=== PATIENT | male | born 1995 | race Caucasian/White ===

== ENCOUNTER 2020-04-01 13:41 | Emergency (ER) | payer OTHER ==
[~2020-04-01] VITALS: Ht 177.8 cm; Wt 61.7 kg
[2020-04-01] MEDS ORDERED: ONDANSETRON HCL/PF 4 MG/2 ML VIAL ONE ×2 (13:59→15:27)
[2020-04-01] MEDS ORDERED: ONDANSETRON HCL/PF 4 MG/2 ML VIAL IVP ONE ×2 (14:00→15:30)
[2020-04-01] MEDS ORDERED: diphenhydrAMINE HCL 50 MG/ML VIAL ONE (14:00)
[2020-04-01] MEDS ORDERED: diphenhydrAMINE HCL 50 MG/ML VIAL IV ONE (14:00)
[2020-04-01] MEDS ORDERED: IV NS 0.9% 1,000 ML BAG IV ONE (14:00)
[2020-04-01] MEDS ORDERED: METOCLOPRAMIDE HCL 10 MG/2 ML VIAL IV ONE (14:00)
[2020-04-01] MEDS ORDERED: METOCLOPRAMIDE HCL 10 MG/2 ML VIAL ONE (14:01)
[2020-04-01 14:15] LABS: BASOPHILS % (AUTO) 0.5 % (0.0-2.0); EOSINOPHILS % (AUTO) 0.4 % (0.0-6.0); HEMATOCRIT 46 % (39-51); HEMOGLOBIN 15.3 g/dL (13.5-17.5); LYMPHOCYTES # (AUTO) 1.3 /CMM (0.8-4.8); LYMPHOCYTES % (AUTO) 13.8 % (20.0-44.0); MEAN CORPUSCULAR HGB CONC 34 g/dl (31.0-36.0); MEAN CORPUSCULAR VOLUME 89 fL (80-96); MONOCYTES # (AUTO) 0.5 /CMM (0.1-1.30); MONOCYTES % (AUTO) 5.5 % (2.0-12.0); NEUTROPHILS # (AUTO) 7.5 /CMM (1.8-8.9); NEUTROPHILS % (AUTO) 79.8 % (43.0-81.0); PLATELET COUNT (AUTO) 222 /CMM (150-450); RED BLOOD CELL COUNT(AUTO) 5.12 MIL/uL (4.5-6.0); WHITE BLOOD COUNT (AUTO) 9.4 K/uL (4.3-11.0)
--- NOTE | 2020-04-01 14:15 | NUR ---
IV NS 100ML STARTED ON L AC 18G START TIME 1415 ENDTIME 1515
--- NOTE | 2020-04-01 14:17 | NUR ---
BIBS TO ER BED 6. AAOX4. NOT IN RESP DISTRESS. AMBULATORY. CAME IN FOR NAUSEA AND VOMMITING THAT STARTED @ 1000. PER PT HE HAD THE SAME INCIDENT BACK THEN AND WAS DX WITH CANNABIS ENDUCED HYPEREMESIS. PT REPORTS THAT HE IS A DAILY CANNABIS USER. PT REPORTS MULTIPLE EPISODE OF VOMMITING AND NOW STILL NAUSEOUS. MD WAS AT BEDSIDE FOR EVAL. ORDERS RECEIVED, NOTED AND CARRIED OUT. IV LINE OBTAINED ON L AC 18G, BLOO DRAWN AND GIVEN TO [employer]IAL INSURANCE SPECIALIST AT BEDSIDE.
[2020-04-01 14:22] LABS: POTASSIUM 3.8 mmol/L (3.5-5.1)
[2020-04-01 14:27] LABS: ALBUMIN 4.9 g/dL (3.4-5.0); BILIRUBIN,DIRECT 0.1 mg/dL (0.0-0.2); BILIRUBIN,TOTAL 0.6 mg/dL (0.2-1.0); TOTAL PROTEIN, SERUM 8.1 g/dL (6.4-8.2)
--- NOTE | 2020-04-01 15:44 | NUR ---
Patient discharged to home in stable condition. Written and verbal after care instructions given. Patient verbalizes understanding of instruction.IV removed. Catheter intact and site benign. Pressure and 4x4 applied to site. No bleeding noted. Pt ambulatory with a steady gait
[2020-04-01 15:45] VITALS: BP 116/83
== END 2020-04-01 15:45 | disposition home or self-care (01) ==
LOC: ER 13:41
DX: R11.2 Nausea with vomiting, unspecified (principal)
CPT/HCPCS: 36415; 80048; 80076; 83690; 85025; 96361; 96374; 96375; 96376; 99284; J1200; J2405 ×2; J2765; J7030